=== PATIENT | female | born 1950 | race Caucasian/White ===

== ENCOUNTER → 2024-08-02 15:26 | Outpatient (CLI) | payer MEDICARE, SELFPAY ==
--- NOTE | 2024-08-02 15:28 | DI.CT.S_ITS ---
PROCEDURE: CT CHEST WO CON INDICATIONS: Lung nodules, possible tracheal polyp, initial CT [facility] TECHNIQUE: Noncontrast 5 mm thick sections acquired from the pulmonary apices to the posterior costophrenic angles. 1 mm lung window, 5 mm thick coronal and sagittal and 7 mm axial MIP reformats were then acquired. For radiation dose reduction, the following was used: automated exposure control, adjustment of mA and/or kV according to patient size. COMPARISON: Outside Facility, CT, CT CHEST WO CON, 07/27/2024, 8:19. FINDINGS: Image quality: Diagnostic. Lower Neck: No enlarged lymph nodes. Thyroid: 2.3 centimeter left thyroid nodule. Axillae: No enlarged lymph nodes. Chest Wall: Unremarkable. Bones: Unremarkable. Lungs and Pleura: No pneumothorax or pleural effusions. Moderate centrilobular emphysema. Stable 5 millimeter solid nodule, left lower lobe . Stable 2 millimeter solid nodule, right upper lobe (series 3, image 82). Heart: Heart size is normal. No pericardial effusion. Three-vessel coronary artery calcifications. Thoracic Vessels: The aorta and pulmonary arteries demonstrate normal size. Mediastinum and Anita: No enlarged lymph nodes. Esophagus: No wall thickening. No hiatal hernia. Upper Abdomen: Visualized upper abdomen solid organs and bowel loops appear normal. IMPRESSION: Moderate emphysema. Stable pulmonary nodules, largest measuring 5 centimeters. Per prior report, this has been stable since 04/21/2024. Consider follow-up in 12 months as of 04/2024, per Fleischner society guidelines. 2.3 centimeter left thyroid nodule. Dedicated thyroid ultrasound is recommended, per consensus guidelines. Marked coronary artery calcifications for age. Correlate with risk factors and advise counseling. Consider annual low-dose lung cancer screening if eligible (age 50-85 who have a 20 pack-year smoking history and currently smoke or have quit within the last 15 years). Dictated by: Raudel King M.D. on 08/03/2024 at 14:31 Approved by: Raudel King M.D. on 08/03/2024 at 14:35
== END ==
PROVIDERS: PCP Internal Medicine; Referring Provider Internal Medicine Critical Care Medicine; Visit Provider Internal Medicine Critical Care Medicine
DX: J43.2 Centrilobular emphysema (principal); R91.8 Other nonspecific abnormal finding of lung field; E04.1 Nontoxic single thyroid nodule; I25.10 Atherosclerotic heart disease of native coronary artery without angina pectoris
CPT/HCPCS: 71250